=== PATIENT | female | born 1990 | race Caucasian/White ===

== ENCOUNTER 2017-02-07 12:49 | Emergency (ER) | payer OTHER ==
[~2017-02-07] VITALS: Ht 162.6 cm; Wt 59.7 kg
[2017-02-07 13:11] VITALS: Ht 162.6 cm; Wt 59.7 kg
--- NOTE | 2017-02-07 14:43 | EMERGENCY ROOM VISIT NOTE ---
History First contact with patient: 14:35 Chief Complaint: VAGINAL BLEEDING Stated Complaint: VAGINAL BLEEDING History of Present Illness The patient is a 26 year old female who presents to the Emergency Room with complaints of vaginal bleeding for 3 days after her first episode of sexual intercourse. She is very concerned that her hymen has been torn, which, culturally, is very concerning to her. She noticed bright red bleeding and this continued all day friday, and friday, but today (), the bleeding is much less. She also noticed a tear in her vaginal area. She also reports that since friday (3 days ago) she has noticed her legs feel heavy, she reports lower abdominal pain, and pain in her lower back. This pain/discomfort started almost immediately after intercourse. On Day 1, her pain was about 8/10, and today she rates it at 5/10. LMP was january 10, she is expecting her period any day now. Review of Systems Constitutional: + weakness, No fever, No chills, No sweats, No weight loss, No fatigue, No problem reported ENT: No hearing loss, No unusual epistaxis, No nasal symptoms, No sore throat, No tinnitus, No dental problems, No trouble swallowing, No problem reported Respiratory: No cough, No sputum, No wheezing, No shortness of breath, No dyspnea on exertion, No dyspnea at rest, No hemoptysis, No problem reported Cardiovascular: No chest pain, No orthopnea, No PND, No edema, No claudication, No palpitations, No problem reported Abdomen: + pain, + nausea, No vomiting, No diarrhea, No constipation, No GI bleeding, No problem reported Genitourinary - Female: + vaginal bleeding Social History Smoking Status: Never Smoker Current/Historical Medications Scheduled Acetaminophen (Tylenol), 500 MG PO PRN Cholecalciferol (Vitamin D 1000 Unit), 1,000 INTER.UNIT PO DAILY Physical Exam Vital Signs Date Time Temp Pulse Resp B/P (MAP) Pulse Ox O2 Delivery O2 Flow Rate FiO2 02/07/17 13:11 36.4 92 16 100/68 96 Room Air Pain Rating (0-10): 5 Physical Exam General Appearance: WD/WN, no apparent distress Head: normocephalic, atraumatic Eyes: EOMI ENT: hearing grossly normal Respiratory/Chest: chest non-tender, lungs clear, normal breath sounds, no respiratory distress, no accessory muscle use Cardiovascular: regular rate, rhythm, no edema, no gallop, no JVD, no murmur , normal peripheral pulses Abdomen / GI: normal bowel sounds, non tender, soft Genitourinary - Female: normal ovaries and adnexa, + pertinent finding (1 cm fissure at 7 o'clock position of vaginal entroitus; patient unable to tolerate speculum examination; no cervical motion tenderness or adnexal tenderness on bimanual exam. 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, no motor/sensory deficits, alert , normal mood/affect, normal reflexes, oriented x 3 Medical Decision & Procedures Laboratory Results 02/07/17 15:35 Red Blood Count 4.30, Mean Corpuscular Volume 89.5, Mean Corpuscular Hemoglobin 30.7, Mean Corpuscular Hemoglobin Concent 34.3, Mean Platelet Volume 10.1, Neutrophils (%) (Auto) 54.7, Lymphocytes (%) (Auto) 36.0, Monocytes (%) (Auto) 6.8, Eosinophils (%) (Auto) 2.1, Basophils (%) (Auto) 0.2, Neutrophils # (Auto) 3.41, Lymphocytes # (Auto) 2.24, Monocytes # (Auto) 0.42, Eosinophils # (Auto) 0.13, Basophils # (Auto) 0.01 Test 02/07/17 14:37 02/07/17 15:35 Urine Color YELLOW Urine Appearance CLEAR (CLEAR) Urine pH 7.0 (4.5-7.5) Urine Specific [place] <= 1.005 (1.000-1.030) Urine Protein NEG (NEG) Urine Glucose (UA) NEG (NEG) Urine Ketones NEG (NEG) Urine Occult Blood NEG (NEG) Urine Nitrite NEG (NEG) Urine Bilirubin NEG (NEG) Urine Urobilinogen NEG (NEG) Urine Leukocyte Esterase TRACE (NEG) Urine RBC 0-4 /hpf (0-4) Urine WBC 1-5 /hpf (0-5) Urine Epithelial Cells 5-10 /lpf (0-5) Urine Bacteria 1+ (NEG) Urine Test NEG (NEG) White Blood Count 6.22 K/uL (4.8-10.8) Red Blood Count 4.30 M/uL (4.2-5.4) Hemoglobin 13.2 g/dL (12.0-16.0) Hematocrit 38.5 % (37-47) Mean Corpuscular Volume 89.5 fL (80-100) Mean Corpuscular Hemoglobin 30.7 pg (25-34) Mean Corpuscular Hemoglobin Concent 34.3 g/dl (32-36) Platelet Count 284 K/uL (130-400) Mean Platelet Volume 10.1 fL (7.4-10.4) Neutrophils (%) (Auto) 54.7 % Lymphocytes (%) (Auto) 36.0 % Monocytes (%) (Auto) 6.8 % Eosinophils (%) (Auto) 2.1 % Basophils (%) (Auto) 0.2 % Neutrophils # (Auto) 3.41 K/uL (1.4-6.5) Lymphocytes # (Auto) 2.24 K/uL (1.2-3.4) Monocytes # (Auto) 0.42 K/uL (0.11-0.59) Eosinophils # (Auto) 0.13 K/uL (0-0.5) Basophils # (Auto) 0.01 K/uL (0-0.2) RDW Standard Deviation 40.2 fL (36.4-46.3) RDW Coefficient of Variation 12.4 % (11.5-14.5) Immature Granulocyte % (Auto) 0.2 % Immature Granulocyte # (Auto) 0.01 K/uL (0.00-0.02) Prothrombin Time 10.5 SECONDS (9.0-12.0) Prothromb Time International Ratio 1.0 (0.9-1.1) Activated Partial Thromboplast Time 28.4 SECONDS (21.0-31.0) Partial Thromboplastin Ratio 1.1 ED Course 1445: full h&p obtained, informed Dr. Walter of case. Labs ordered. 1500: performed pelvic exam with nurse business director. 1530: Ordered CBC, CMP, Coags 1630: discussed findings with patient, recommend follow up with [facility] as outpatient within 1 week. Medical Decision Prior records/ancillary studies reviewed. Triage Nursing notes reviewed. Additional history obtained from the patient. The patient's history was concerning for vaginal bleeding and abdominal pain. Differential diagnosis: Etiologies such as ectopic , dysfunction uterine bleeding, bleeding dyscrasia, trauma, infection, as well as others were entertained. Physical examination: As above. Vitals signs revealed BP 100/68, HR 92.. ER treatment provided: Pelvic examination Diagnostic interpretation by me: CBC, coagulation studies, and chemistries were unremarkable. Urine test was negative. Urinalysis revealed no sign of infection. Consultation: This appears to be consistent with perineal fissure/tear of 1 cm in length, healing. By the evaluation outlined above emergent etiologies such as bleeding dyscrasia, ectopic , trauma, as well as others were deemed relatively unlikely. The patient was informed about the findings as listed above. All questions were answered and she was pleased with the treatment. Return instructions were outlined and the patient was discharged in stable condition. Referral: The patient was referred to [facility] for follow-up in 1 week for a recheck of her current condition. Impression Primary Impression: Vaginal bleeding Departure Information Dispostion Home / Self-Care Condition GOOD Referrals No Doctor, Assigned (PCP) Patient Instructions ED Bleed Irregular Vaginal, [facility] Additional Instructions VAGINAL BLEEDING INSTRUCTIONS: Ibuprofen(Motrin, Advil) may be used for fever or pain. Use 600mg every six hours as needed. Take with food. Avoid using more than 2400mg in a 24 hour period. Do not use 2400mg per day for more than three consecutive days without physician direction. Prolonged inappropriate use can lead to stomach upset or ulcers. This is available over the counter and typically comes in 200mg tablets. (AND/OR) Acetaminophen(Tylenol) may be used for fever or pain. Use 1000mg every eight hours as needed. Avoid using more than 3000mg in a 24 hour period. This is available over the counter. Read all the package inserts or medication information paperwork provided. If you have any questions or concerns call your primary provider, pharmacist or the ER for assistance. Rest and drink plenty of fluids as tolerated. Slow sips of water or sports drinks are recommended instead of large amounts all at once. Avoid sexual intercourse for 10-14 days. The [facility] team may give you more specific instructions. When you next get your period, avoid using tampons during this cycle. You should use pads instead. Return to the ER immediately for worsening or persistent abdominal pain, vomiting, fevers, vaginal bleeding chest pains, difficulty breathing, black or bloody stools, worsening of your condition, or as needed. Follow up with your primary physician in 1-2 days for a recheck of your current condition. Follow up with [facility] in the next week. Resident Tracking Resident Involvement: Resident Care Provided Care Provided: Adult ED
[2017-02-07] MEDS ORDERED: KETOROLAC TROMETHAMINE 30 MG/ML VIAL IV STA (14:49)
[2017-02-07] MEDS ORDERED: ONDANSETRON INJ 2 MG/ML 2 ML VIAL IV STA (14:49)
--- NOTE | 2017-02-07 14:54 | EMERGENCY ROOM VISIT NOTE ---
ED Visit Note First contact with patient: 14:35 The patient was seen and examined with Dr. Minnie Crain, resident physician. We discussed the case and treatments ordered, reviewed the results, and determine the disposition. Please refer to the resident's note for additional details. I have been directly involved with the management and disposition as well as independently evaluated the patient as documented in this note.
[2017-02-07 15:34] LABS: MANUAL MICROSCOPIC REQUIRED? YES; URINE APPEARANCE CLEAR (CLEAR); URINE BILIRUBIN NEG (NEG); URINE COLOR YELLOW; URINE NITRITE NEG (NEG); URINE SPECIFIC GRAVITY <= 1.005 (1.000-1.030); UROBILINOGEN NEG (NEG)
[2017-02-07 15:39] LABS: REVIEW REQ? NO
[2017-02-07] MEDS ORDERED: ACET-1256 PO (15:53)
[2017-02-07] MEDS ORDERED: CHOL100027 PO (15:53)
[2017-02-07 15:56] LABS: URINE BACTERIA 1+ (NEG); URINE RBC 0-4 /hpf (0-4)
[2017-02-07 15:57] LABS: BASO % 0.2 %; BASO ABS # 0.01 K/uL (0-0.2); COMPLETE YES; EOS % 2.1 %; HEMATOCRIT 38.5 % (37-47); IG% 0.2 %; LYMPH ABS # 2.24 K/uL (1.2-3.4); MEAN CELL VOLUME 89.5 fL (80-100); MEAN CORPUSCULAR HEMOGLOBIN 30.7 pg (25-34); MEAN CORPUSCULAR HGB CONC 34.3 g/dl (32-36); MEAN PLATELET VOLUME 10.1 fL (7.4-10.4); MONO % 6.8 %; NEUT % 54.7 %; PLATELET COUNT 284 K/uL (130-400); WHITE BLOOD COUNT 6.22 K/uL (4.8-10.8)
[2017-02-07 16:09] LABS: PARTIAL THROMBOPLASTIN RATIO 1.1; PROTHROMBIN TIME (PATIENT) 10.5 SECONDS (9.0-12.0)
[2017-02-07 16:31] LABS: ALT/SGPT 20 U/L (12-78); BLOOD UREA NITROGEN 11 mg/dl (7-18); BUN/CREATININE RATIO 19.5 (10-20); CALCIUM 8.6 mg/dl (8.5-10.1); CARBON DIOXIDE 25 mmol/L (21-32); CHLORIDE 109 mmol/L (98-107); CREATININE 0.55 mg/dl (0.60-1.20); GLUCOSE 91 mg/dl (70-99); POTASSIUM 3.6 mmol/L (3.5-5.1); SODIUM 140 mmol/L (136-145)
[2017-02-07 16:33] LABS: ALB/GLOB RATIO 1.1 (0.9-2); ALKALINE PHOSPHATASE 54 U/L (45-117); AST/SGOT 15 U/L (15-37)
[2017-02-07 17:23] VITALS: BP 103/56; PULSE 88; TEMP 36.9; O2SAT 98
== END 2017-02-07 17:24 | disposition home or self-care (01) ==
LOC: C.EDB 12:51
DX: N93.9 Abnormal uterine and vaginal bleeding, unspecified (principal); R10.9 Unspecified abdominal pain; R11.0 Nausea